=== PATIENT | female | born 1935 | race Caucasian/White ===

== ENCOUNTER 2022-08-23 08:24 | Observation (INO) ==
[2022-08-23] MEDS ORDERED: Iopamidol - 370 500 ML MLS IVP ONE (08:44)
[2022-08-23 09:02] LABS: Basophils # 0.1 K/mcL (0.0-0.2); Basophils % 0.5 %; Eosinophils % 0.2 %; Hematocrit 25.1 % (35.3-44.9); Hemoglobin 8.2 g/dL (11.5-15.4); Immature Granulocytes % 0.4 % (0-4); Lymphocytes # 1.7 K/mcL (0.6-4.6); Lymphocytes % 16.5 %; Mean Corpuscular HGB Conc 32.7 g/dL (31.6-35.5); Mean Corpuscular Hemoglobin 32.2 pg (28.0-33.3); Mean Corpuscular Volume 98.4 fL (83.0-100.0); Mean Platelet Volume 9.5 fL (9.4-12.4); Monocytes # 0.6 K/mcL (0.0-1.3); Monocytes % 6.1 %; Neutrophils # 7.9 K/mcL (1.6-8.9); Platelet Count 335 K/mcL (140-400); Red Blood Count 2.55 M/mcL (3.82-4.97); Red Cell Distribution Width 12.6 % (11.5-14.5); Segmented Neutrophils % 76.3 %; White Blood Count 10.3 K/mcL (4.3-11.1)
[2022-08-23 09:26] LABS: Alanine Aminotransferase 13 Units/L (7-52); Albumin 3.3 g/dL (3.5-5.7); Albumin/Globulin Ratio 1.4 (1.1-2.2); Alkaline Phosphatase 140 Units/L (34-104); Amylase 57 Units/L (29-103); Aspartate Amino Transferase 17 Units/L (13-39); BUN/Creatinine Ratio 76 (6-26); Bilirubin,Direct 0.1 mg/dL (0.0-0.2); Bilirubin,Indirect 0.4 mg/dL (0.0-1.0); Bilirubin,Total 0.5 mg/dL (0.3-1.0); Blood Urea Nitrogen 61 mg/dL (8-23); Carbon Dioxide 26 mEq/L (23-29); Chloride 104 mEq/L (98-107); Globulin 2.3 g/dL (2.4-3.5); Glucose 174 mg/dL (70-105); Lipase 51 Units/L (11-82); Osmolality,Calculated 303 (280-300); Potassium 4.6 mEq/L (3.5-5.1); Sodium 136 mEq/L (136-145); Total Protein 5.6 g/dL (6.4-8.9)
[2022-08-23 09:27] LABS: Troponin I < 0.03 ng/mL (< 0.04)
[2022-08-23 09:56] LABS: Adenovirus Not Detected (Not Detect); Bordetella Pertussis Not Detected (Not Detect); Chlamydophila pneumoniae Not Detected (Not Detect); Coronavirus 229E Not Detected (Not Detect); Coronavirus HKU1 Not Detected (Not Detect); Coronavirus NL63 Not Detected (Not Detect); Coronavirus OC43 Not Detected (Not Detect); Human Metapneumovirus Not Detected (Not Detect); Human Rhinovirus/Enterovirus Not Detected (Not Detect); Influenza A Subtype 2009 H1 Not Detected (Not Detect); Influenza B Not Detected (Not Detect); Mycoplasma pneumoniae Not Detected (Not Detect); Parainfluenza Virus 1 Not Detected (Not Detect); Parainfluenza Virus 2 Not Detected (Not Detect); Parainfluenza Virus 3 Not Detected (Not Detect); Parainfluenza Virus 4 Not Detected (Not Detect); Respiratory Syncytial Virus Not Detected (Not Detect); SARS-CoV-2 Not Detected (Not Detect)
[2022-08-23 10:17] LABS: Bilirubin,Urine Negative (Negative); Blood,Urine Small (Negative); Clarity,Urine Clear (Clear); Color,Urine Light-Yellow (Yellow); Glucose,Urine (UA) Normal (Normal); Ketones,Urine 10 mg/dL (Negative); Leukocyte Esterase,Urine Trace (Negative); Mucus,Urine Few per lpf (None-Few); Nitrite,Urine Negative (Negative); Protein,Urine Negative (Neg-Trace); RBC,Urine 0-3 per hpf (0-3); Specific Gravity,Urine 1.025 (1.010-1.025); Squamous Epithelial Cell,Urine Few per hpf (None-Few); Urobilinogen,Urine Normal (Normal); WBC,Urine 0-3 per hpf (0-3)
[2022-08-23] MEDS ORDERED: Pantoprazole 40 MG VIAL IVP ONE (11:42)
[2022-08-23] MEDS ORDERED: Famotidine 20 MG/2 ML VIAL IVP ONE (11:44)
[2022-08-23] MEDS ORDERED: Naloxone 0.4 MG/ML INJ IVP PRN (12:25)
[2022-08-23] MEDS ORDERED: Erythromycin Lactobionate 250 MG in 0.9 % Sodium Chloride 100 ML IVPB ONE (14:00)
[2022-08-23 14:16] LABS: Hematocrit 25.5 % (35.3-44.9); Hemoglobin 8.2 g/dL (11.5-15.4); Mean Corpuscular HGB Conc 32.2 g/dL (31.6-35.5); Mean Corpuscular Hemoglobin 31.5 pg (28.0-33.3); Mean Corpuscular Volume 98.1 fL (83.0-100.0); Mean Platelet Volume 9.5 fL (9.4-12.4); Platelet Count 330 K/mcL (140-400); Red Cell Distribution Width 12.5 % (11.5-14.5); White Blood Count 11.5 K/mcL (4.3-11.1)
[2022-08-23 14:23] LABS: INR 1.3; Prothrombin Time 14.2 Seconds (9.4-12.1)
[2022-08-23 14:26] LABS: Activated Partial Thrombo Time 35.2 Seconds (26.0-36.0)
[2022-08-23 18:02] LABS: Hematocrit 23.6 % (35.3-44.9); Hemoglobin 7.8 g/dL (11.5-15.4)
[2022-08-23] MEDS: Pantoprazole 40 MG VIAL IVP SCH (18:38)
[2022-08-24] MEDS: Pantoprazole 40 MG VIAL IVP SCH ×2 (05:25→17:23)
[2022-08-24 08:28] LABS: Eosinophils % 1.1 %; Hematocrit 22.2 % (35.3-44.9); Immature Granulocytes % 0.3 % (0-4); Lymphocytes % 25.7 %; Mean Corpuscular HGB Conc 31.5 g/dL (31.6-35.5); Mean Corpuscular Hemoglobin 30.8 pg (28.0-33.3); Mean Corpuscular Volume 97.8 fL (83.0-100.0); Mean Platelet Volume 9.6 fL (9.4-12.4); Monocytes % 12.1 %; Platelet Count 316 K/mcL (140-400); Red Blood Count 2.27 M/mcL (3.82-4.97); Segmented Neutrophils % 60.3 %; White Blood Count 9.3 K/mcL (4.3-11.1)
[2022-08-24 08:29] LABS: Basophils # 0.1 K/mcL (0.0-0.2); Basophils % 0.5 %; Eosinophils # 0.1 K/mcL (0.0-0.6); Lymphocytes # 2.4 K/mcL (0.6-4.6); Monocytes # 1.1 K/mcL (0.0-1.3); Neutrophils # 5.6 K/mcL (1.6-8.9)
[2022-08-24 08:51] LABS: Albumin 3.2 g/dL (3.5-5.7); Albumin/Globulin Ratio 1.4 (1.1-2.2); Bilirubin,Total 0.5 mg/dL (0.3-1.0); Calcium 8.8 mg/dL (8.6-10.3); Globulin 2.3 g/dL (2.4-3.5); Magnesium 1.8 mg/dL (1.6-2.6); Phosphorous 3.9 mg/dL (2.7-4.5); Potassium 3.9 mEq/L (3.5-5.1); Total Protein 5.5 g/dL (6.4-8.9)
[2022-08-24] MEDS ORDERED: 0.9 % Sodium Chloride 250 ML ONE (10:40)
[2022-08-24 17:24] LABS: Hematocrit 27.8 % (35.3-44.9)
[2022-08-24 17:25] LABS: Hemoglobin 9.1 g/dL (11.5-15.4)
[2022-08-24] MEDS: *HR* LORazepam 0.5 MG TABLET PO SCH (21:19)
[2022-08-25] MEDS: Pantoprazole 40 MG VIAL IVP SCH (05:47)
[2022-08-25] MEDS: *HR* LORazepam 0.5 MG TABLET PO SCH ×2 (09:04→20:41)
[2022-08-25] MEDS: amLODIPine 5 MG TABLET PO SCH (09:09)
[2022-08-25] MEDS: atenoloL 25 MG TABLET PO SCH (09:09)
[2022-08-25] MEDS: lisinopriL 20 MG TABLET PO SCH (09:09)
[2022-08-25 11:10] LABS: Basophils # 0.1 K/mcL (0.0-0.2); Basophils % 0.7 %; Eosinophils # 0.2 K/mcL (0.0-0.6); Eosinophils % 2.4 %; Hematocrit 26.1 % (35.3-44.9); Hemoglobin 8.5 g/dL (11.5-15.4); Immature Granulocytes % 0.4 % (0-4); Lymphocytes # 1.2 K/mcL (0.6-4.6); Lymphocytes % 17.6 %; Mean Corpuscular HGB Conc 32.6 g/dL (31.6-35.5); Mean Corpuscular Hemoglobin 31.5 pg (28.0-33.3); Mean Corpuscular Volume 96.7 fL (83.0-100.0); Mean Platelet Volume 9.5 fL (9.4-12.4); Monocytes # 0.8 K/mcL (0.0-1.3); Monocytes % 12.2 %; Neutrophils # 4.5 K/mcL (1.6-8.9); Platelet Count 273 K/mcL (140-400); Red Cell Distribution Width 13.7 % (11.5-14.5); Segmented Neutrophils % 66.7 %; White Blood Count 6.8 K/mcL (4.3-11.1)
[2022-08-25 11:26] LABS: Calcium 8.5 mg/dL (8.6-10.3); Potassium 3.8 mEq/L (3.5-5.1)
[2022-08-25] MEDS ORDERED: Lidocaine -MPF 2% 2 ML VIAL ONE (11:58)
[2022-08-25] MEDS ORDERED: Acetaminophen 325 MG TABLET PO PRN (18:31)
[2022-08-25] MEDS: Chlorhexidine Rinse 15 ML MOUTHWASH MM SCH (20:40)
[2022-08-26 03:12] LABS: Basophils % 0.5 %; Eosinophils # 0.3 K/mcL (0.0-0.6); Eosinophils % 3.3 %; Hematocrit 23.9 % (35.3-44.9); Hemoglobin 7.7 g/dL (11.5-15.4); Immature Granulocytes % 0.3 % (0-4); Lymphocytes # 2.4 K/mcL (0.6-4.6); Mean Corpuscular HGB Conc 32.2 g/dL (31.6-35.5); Mean Corpuscular Hemoglobin 31.2 pg (28.0-33.3); Mean Corpuscular Volume 96.8 fL (83.0-100.0); Mean Platelet Volume 9.6 fL (9.4-12.4); Monocytes # 1.1 K/mcL (0.0-1.3); Monocytes % 13.9 %; Nucleated Red Blood Cells 0.3 /100 WBC (0); Platelet Count 268 K/mcL (140-400); Red Blood Count 2.47 M/mcL (3.82-4.97); Red Cell Distribution Width 13.3 % (11.5-14.5); White Blood Count 7.9 K/mcL (4.3-11.1)
[2022-08-26 03:32] LABS: Calcium 8.8 mg/dL (8.6-10.3); Potassium 3.7 mEq/L (3.5-5.1)
[2022-08-26] MEDS: *HR* LORazepam 0.5 MG TABLET PO SCH (10:24)
[2022-08-26] MEDS: lisinopriL 20 MG TABLET PO SCH (10:24)
[2022-08-26] MEDS: amLODIPine 5 MG TABLET PO SCH (10:24)
[2022-08-26] MEDS: Chlorhexidine Rinse 15 ML MOUTHWASH MM SCH (10:25)
[2022-08-26] MEDS: atenoloL 25 MG TABLET PO SCH (10:36)
[2022-08-26 10:49] LABS: Hematocrit 25.4 % (35.3-44.9); Hemoglobin 8.2 g/dL (11.5-15.4)
[2022-08-26 11:40] VITALS: BP 121/70; PULSE 77; TEMP 97.9; O2SAT 97
== END 2022-08-26 14:36 | disposition home or self-care (01) ==
LOC: 2ANU 08:24 → EMEROOARM 08:24 → 2ANU 15:08
PROVIDERS: ADMIT Internal Medicine; ATTEND Internal Medicine
PROC: ENDOEBX (2022-08-25 12:55)